=== PATIENT | male | born 2000 ===

== ENCOUNTER 2023-01-05 13:04 | Emergency (ER) | payer OTHER ==
[~2023-01-05] VITALS: Ht 175.3 cm; Wt 83.0 kg
[2023-01-05] MEDS ORDERED: IBUPROFEN 600 MG TABLET PO ONE (13:30)
[2023-01-05 14:18] VITALS: TEMP 98.2
[2023-01-05 15:30] VITALS: BP 136/88; PULSE 74; RESP 16
== END 2023-01-05 15:53 | disposition home or self-care (01) ==
LOC: EMS 13:04
DX: S50.11XA Contusion of right forearm, initial encounter (principal); F17.210 Nicotine dependence, cigarettes, uncomplicated; W19.XXXA Unspecified fall, initial encounter; Y93.89 Activity, other specified; Y92.828 Other wilderness area as the place of occurrence of the external cause; Y99.8 Other external cause status
CPT/HCPCS: 99284; 73080-TC; 73090-TC; 73130-TC; Z7502; Z7610